=== PATIENT | female | born 1965 | race Caucasian/White ===

== ENCOUNTER 2018-11-25 14:34 | Emergency (ER) | payer SELFPAY ==
--- NOTE | 2018-11-25 17:14 | RAD REPORT ---
EXAM DESCRIPTION: RAD - Chest Pa And Lat (2 Views) - 11/25/2018 4:52 pm CLINICAL HISTORY: Cough and congestion, dyspnea COMPARISON: None. TECHNIQUE: PA and lateral views of the chest were obtained. FINDINGS: The lungs are clear of a focal infiltrate or mass. No failure or volume overload. No signi ficant interstitial findings seen. Trachea is midline. Heart size is normal and central vasculature is within normal limits. No pleural effusion or pneumothorax seen. No acute bony finding noted. N o aortic abnormality. IMPRESSION: No acute cardiopulmonary process.
[2018-11-25] MEDS ORDERED: IPRATROPIUM BROM 0.5MG/2.5ML ONE (17:31)
[2018-11-25] MEDS ORDERED: ALBUTEROL 2.5 MG/3 ML NEB SOL ONE (17:31)
--- NOTE | 2018-11-25 17:54 | EDPHYS ---
Physician Documentation [facility] Name: Kristyn Mota Age: 53 yrs Sex: Female : 1965 Arrival Date: 11/25/2018 Time: 14:37 Bed 7 Private MD: ED Physician Blayne Hankins HPI: 11/25 16:33 This 53 yrs old Female presents to ER via Ambulatory with complaints of Flu kb Symptoms. 16:36 The patient or guardian reports cough, that is intermittent, described as moderate, kb with no sputum, difficulty breathing. Onset: The symptoms/episode began/occurred 2 week(s) ago. Severity of symptoms: At their worst the symptoms were moderate, in the emergency department the symptoms are unchanged. Modifying factors: The symptoms are alleviated by nothing, the symptoms are aggravated by nothing. Associated signs and symptoms: The patient has no apparent associated signs or symptoms. The patient has experienced similar episodes in the past. The patient has not recently seen a physician. 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 - Social history:: Smoking status: Patient uses tobacco products, denies chronic smoking, but will smoke occasionally. - Ebola Screening: : Patient negative for fever greater than or equal to 101.5 degrees Fahrenheit, and additional compatible Ebola Virus Disease symptoms Patient denies exposure to infectious person Patient denies travel to an Ebola-affected area in the 21 days before illness onset No symptoms or risks identified at this time. ROS: 16:34 Constitutional: Negative for fever, chills, and weight loss, ENT: Negative for injury, kb pain, and discharge, Neck: Negative for injury, pain, and swelling, Cardiovascular: Negative for chest pain, palpitations, and edema, Abdomen/GI: Negative for abdominal pain, nausea, vomiting, diarrhea, and constipation, Back: Negative for injury and pain, MS/Extremity: Negative for injury and deformity, Skin: Negative for injury, rash, and discoloration, Neuro: Negative for headache, weakness, numbness, tingling, and seizure. 16:34 Respiratory: Positive for cough, shortness of breath, Negative for dyspnea on exertion, hemoptysis, orthopnea, pleurisy, sputum production, wheezing. Exam: 16:34 Constitutional: This is a well developed, well nourished patient who is awake, alert, kb and in no acute distress. Head/Face: Normocephalic, atraumatic. Chest/axilla: Normal chest wall appearance and motion. Nontender with no deformity. No lesions are appreciated. Cardiovascular: Regular rate and rhythm with a normal S1 and S2. No gallops, murmurs, or rubs. Normal PMI, no JVD. No pulse deficits. Abdomen/GI: Soft, non-tender, with normal bowel sounds. No distension or tympany. No guarding or rebound. No evidence of tenderness throughout. Skin: Warm, dry with normal turgor. Normal color with no rashes, no lesions, and no evidence of cellulitis. MS/ Extremity: Pulses equal, no cyanosis. Neurovascular intact. Full, normal range of motion. Neuro: Awake and alert, GCS 15, oriented to person, place, time, and situation. Cranial nerves II-XII grossly intact. Motor strength 5/5 in all extremities. Sensory grossly intact. Cerebellar exam normal. Normal gait. 16:34 Respiratory: mild respiratory distress is noted, Respirations: labored breathing, that is mild, Breath sounds: decreased breath sounds, are scattered, wheezing: that is mild, is scattered. Vital Signs: 14:41 BP 152 / 97; Pulse 89; Resp 18; Temp 97.9; Pulse Ox 98% on R/A; Weight 83.91 kg; Height sg 5 ft. 4 in. (162.56 cm); Pain 6/10; 17:00 BP 141 / 86; Pulse 87; Resp 22; Pulse Ox 98% on R/A; ph 18:45 BP 146 / 88; Pulse 84; Resp 18; Temp 97.6; Pulse Ox 99% on R/A; ph 14:41 Body Mass Index 31.75 (83.91 kg, 162.56 cm) sg MDM: 16:22 Patient medically screened. kb 16:35 Data reviewed: vital signs, nurses notes. Data interpreted: Pulse oximetry: on room air kb is 98 %. Interpretation: normal. 17:23 Counseling: I had a detailed discussion with the patient and/or guardian regarding: the kb historical points, exam findings, and any diagnostic results supporting the discharge/admit diagnosis, lab results, radiology results, the need for outpatient follow up, a family practitioner, to return to the emergency department if symptoms worsen or persist or if there are any questions or concerns that arise at home. 17:53 ED course: Lungs clear throughout after neb treatment. Pt feeling better. kb 11/25 14:44 Order name: Flu; Complete Time: 16:22 sg 11/25 16:26 Order name: Chest Pa And Lat (2 Views) XRAY; Complete Time: 17:16 kb Administered Medications: 17:22 Drug: DuoNeb (3:1) (2.5 mg - 0.5 mg) 3 ml Route: Nebulizer; kb 18:00 Follow up: Response: No adverse reaction ph 19:09 Drug: predniSONE 40 mg Route: PO; ph 19:09 Follow up: Response: No adverse reaction; Medication administered at discharge. ph 19:09 Drug: Zithromax 500 mg Route: PO; ph 19:49 Follow up: Response: No adverse reaction; Medication administered at discharge. ph Disposition: 11/26 18:57 Co-signature as Attending Physician, Blayne Hankins MD I agree with the assessment and kdr plan of care. Disposition: 11/25/18 17:53 Discharged to Home. Impression: Bronchitis, not specified as acute or chronic. - Condition is Stable. - Discharge Instructions: Acute Bronchitis, [id number]. - Prescriptions for Prednisone 20 mg Oral Tablet - take 1 tablet by ORAL route once daily for 5 days; 5 tablet. Tessalon Perles 100 mg Oral Capsule - take 1 capsule by ORAL route every 8 hours As needed; 15 capsule. Zithromax Z- Maxi 250 mg Oral Tablet - take 1 tablet by ORAL route as directed for 5 days Day 1 - take two (2) tablets one time. Day 2, 3, 4 , 5 take one (1) tablet once daily.; 6 tablet. Albuterol Sulfate 90 mcg/actuation - inhale 1-2 puff by INHALATION route every 4-6 hours; 1 Inhaler. - Medication Reconciliation Form, Thank You Letter, Antibiotic Education, Prescription Opioid Use form. - Follow up: Emergency Department; When: As needed; Reason: Worsening of condition. Follow up: Private Physician; When: 2 - 3 days; Reason: Recheck today's complaints, Continuance of care, Re-evaluation by your physician. Signatures: Dispatcher [employer] ED Leesa Melchor, RADHIKA GARNER-Tai Olsen, RN RN sg Blayne Hankins MD MD [facility] Coby Beal RN RN ph Corrections: (The following items were deleted from the chart) 11/25 19:09 17:53 11/25/2018 17:53 Discharged to Home. Impression: Bronchitis, not specified as ph acute or chronic. Condition is Stable. Discharge Instructions: Acute Bronchitis, [id number]. Prescriptions for Prednisone 20 mg Oral Tablet - take 1 tablet by ORAL route once daily for 5 days; 5 tablet, Tessalon Perles 100 mg Oral Capsule - take 1 capsule by ORAL route every 8 hours As needed; 15 capsule, Zithromax Z-Maxi 250 mg Oral Tablet - take 1 tablet by ORAL route as directed for 5 days Day 1 - take two (2) tablets one time. Day 2, 3, 4 , 5 take one (1) tablet once daily.; 6 tablet, Albuterol Sulfate 90 mcg/actuation - inhale 1-2 puff by INHALATION route every 4-6 hours; 1 Inhaler. and Forms are Medication Reconciliation Form, Thank You Letter, Antibiotic Education, Prescription Opioid Use. Follow up: Emergency Department; When: As needed; Reason: Worsening of condition. Follow up: Private Physician; When: 2 - 3 days; Reason: Recheck today's complaints, Continuance of care, Re-evaluation by your physician. kb
--- NOTE | 2018-11-25 17:54 | ER ---
Nurse's Notes [facility] Name: Kristyn Mota Age: 53 yrs Sex: Female : 1965 Arrival Date: 11/25/2018 Time: 14:37 Bed 7 Private MD: Diagnosis: Bronchitis, not specified as acute or chronic Presentation: 11/25 14:40 Presenting complaint: Patient states: Sabrina had cough, chest congestion for several sg weeks, have been taking OTC Mucinex but no changes, reports having body aches and chills for the last two days, denies N/V/D at this time. Transition of care: patient was not received from another setting of care. Onset of symptoms was November 25, 2018. Risk Assessment: Do you want to hurt yourself or someone else? Patient reports no desire to harm self or others. Initial Sepsis Screen: Does the patient meet any 2 criteria? No. Patient's initial sepsis screen is negative. Does the patient have a suspected source of infection? No. Patient's initial sepsis screen is negative. Care prior to arrival: None. 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 - Social history:: Smoking status: Patient uses tobacco products, denies chronic smoking, but will smoke occasionally. - Ebola Screening: : Patient negative for fever greater than or equal to 101.5 degrees Fahrenheit, and additional compatible Ebola Virus Disease symptoms Patient denies exposure to infectious person Patient denies travel to an Ebola-affected area in the 21 days before illness onset No symptoms or risks identified at this time. Screenin:00 Abuse screen: Denies threats or abuse. Denies injuries from another. Nutritional ph screening: No deficits noted. Tuberculosis screening: No symptoms or risk factors identified. Fall Risk None identified. Assessment: 16:45 General: Appears in no apparent distress. comfortable, well groomed, Behavior is calm, ph cooperative, appropriate for age, Reports chills for 1-2 days, fatigue for. Pain: Denies pain. Neuro: Level of Consciousness is awake, alert, obeys commands, Oriented to person, place, time, situation. Cardiovascular: Reports shortness of breath, Denies chest pain, nausea, vomiting, Capillary refill < 3 seconds in bilateral fingers Patient's skin is warm and dry. Respiratory: Reports shortness of breath at rest Airway is patent Respiratory effort is even, unlabored, Respiratory pattern is regular, symmetrical, Breath sounds are coarse in mediastinum Breath sounds with wheezes in right upper lobe and left upper lobe. GI: No signs and/or symptoms were reported involving the gastrointestinal system. Patient currently denies abdominal pain, diarrhea, nausea, vomiting. Derm: Skin is intact, is healthy with good turgor, Skin is pink, warm \T\ dry. Musculoskeletal: Circulation, motion, and sensation intact. Range of motion: intact in all extremities. 18:30 Reassessment: Patient appears in no apparent distress at this time. No changes from ph previously documented assessment. Patient is alert, oriented x 3, equal unlabored respirations, skin warm/dry/pink. Vital Signs: 14:41 BP 152 / 97; Pulse 89; Resp 18; Temp 97.9; Pulse Ox 98% on R/A; Weight 83.91 kg; Height sg 5 ft. 4 in. (162.56 cm); Pain 6/10; 17:00 BP 141 / 86; Pulse 87; Resp 22; Pulse Ox 98% on R/A; ph 18:45 BP 146 / 88; Pulse 84; Resp 18; Temp 97.6; Pulse Ox 99% on R/A; ph 14:41 Body Mass Index 31.75 (83.91 kg, 162.56 cm) sg ED Course: 14:37 Patient arrived in ED. as 14:39 Arm band placed on. sg 14:54 Triage completed. sg 16:22 [facility] kb 16:22 Blayne Hankins MD is Attending Physician. kb 16:32 Chest Pa And Lat (2 Views) XRAY In Process Unspecified. EDMS 16:47 Patient moved to radiology via wheelchair. kw 16:47 X-ray completed. Patient tolerated procedure well. kw 17:00 Patient has correct armband on for positive identification. Bed in low position. Call ph light in reach. Side rails up X 1. Pulse ox on. NIBP on. 19:05 No provider procedures requiring assistance completed. Patient did not have IV access ph during this emergency room visit. 19:07 Coby Beal, RN is Primary Nurse. ph Administered Medications: 17:22 Drug: DuoNeb (3:1) (2.5 mg - 0.5 mg) 3 ml Route: Nebulizer; kb 18:00 Follow up: Response: No adverse reaction ph 19:09 Drug: predniSONE 40 mg Route: PO; ph 19:09 Follow up: Response: No adverse reaction; Medication administered at discharge. ph 19:09 Drug: Zithromax 500 mg Route: PO; ph 19:49 Follow up: Response: No adverse reaction; Medication administered at discharge. ph Outcome: 17:53 Discharge ordered by . kb 19: Patient left the ED. ph 19:09 Discharged to home ambulatory. ph 19:09 Condition: good 19:09 Discharge instructions given to patient, Instructed on discharge instructions, follow up and referral plans. medication usage, Demonstrated understanding of instructions, follow-up care, medications, Prescriptions given X 4. Signatures: Dispatcher [employer] EDWI Leesa Melchor, HVAC LEAD-C HVAC LEAD-Tai Olsen RN RN Stacey Hernandez Kimberlee Coby Beal, RN RN
[2018-11-25] MEDS ORDERED: AZITHROMYCIN 250 MG TAB ONE (19:03)
[2018-11-25] MEDS ORDERED: predniSONE 20 MG TAB ONE (19:04)
[2018-11-25 20:47] VITALS: TEMP 98.6
[2018-11-25 20:49] VITALS: O2SAT 97
[2018-11-25 20:50] VITALS: BP 147/81
== END 2018-11-25 19:09 | disposition home or self-care (01) ==
LOC: ER 14:34
DX: J40 Bronchitis, not specified as acute or chronic (principal); Z72.0 Tobacco use; Z88.5 Allergy status to narcotic agent
CPT/HCPCS: 71046; 87804; 94640; 99284; J7512